=== PATIENT | female | born 1970 | race Caucasian/White ===

== ENCOUNTER → 2016-12-13 | Outpatient (CLI) | payer MEDICARE ==
[~2016-12-13] MED LIST: ADVAIR 2501 DISK W/D PO; ALBUTEROL17 GM INH; AMITRIPTYLINE H25 MG PO; AMITRYPTYLINE PO; BENTYL20 MG PO; CARTIA XT; DICLOFENAC PO; FLEXERIL10 MG PO; LORTAB 101 TAB 10/5 PO; LORTAB 5/500 TA1 TA2 PO; LORTAB 7.5-5001 TAB PO; LORTAB 7.51 TAB PO; MEDROL PO; MEDROL4 MG/DOSE- PO; METOPROLOL SUCC25 MG PO; NAPROSYN250 M1 PO; NAPROSYN500 MG PO; NEURONTIN600 MG PO; NEURONTIN800 MG PO; OMEPRAZOLE40 M1 PO; PERCOCET 5-3251 TAB PO; PRINIVIL20 M1 PO; ZITHROMAX PO; ZOFRAN ODT4 MG/UDTAB SL
--- NOTE | ~2016-12-13 | CT2 ---
[facility] A Service of [facility] RADIOLOGY TEXT RESULTS PATIENT: ALFRED ASIF LOCATION: [facility] : 66 UNIT #: [id number] AGE: [address]: Jose Thompson MD SEX: F ORDER DR: [id number] [address] [address] [id number] O MR#: [id number] Acc #: [id number] NAME: ALFRED ASIF : 1970 SEX: F STUDY DATE/TIME: 12/13/2016 12:48 UNIT: SCT ROOM: STUDY DESCRIPTION: CT Abd and Pelv W Cont Attending Physician: Jose Thompson M.D. Referring Physician: Jose Thompson M.D. Ordering Physician: Jose Thompson M.D. Primary Care Physician: Jimmy Nguyễn A.P.R.N. MEDICAL IMAGING REPORT This report is preliminary unless electronic signature is present. EXAM Abdomen and pelvis CT with contrast. DATE OF EXAM 12/13/2016 HISTORY Burning sensation in the right lower quadrant with tenderness to palpation for the past 2-3 months. TECHNIQUE Axial images were obtained with oral and intravenous contrast. 100 mL of Isovue was used. NOTE: This CT exam was performed with one or more of the following radiation dose reduction techniques: automatic exposure control, adjustment of mA and/or kV according to patient size, and iterative reconstruction. COMPARISON STUDIES Comparison with a noncontrasted examination from 10/07/2016. FINDINGS Clips are seen from cholecystectomy. There is a small hepatic cyst. The spleen and pancreas are unremarkable. There is a nonobstructing right kidney stone measuring about 2-3 mm in diameter. It is unchanged. There is no evidence of retroperitoneal adenopathy or ascites. The appendix is normal. No distended bowel loops are seen. There is a small right ovarian cyst on the previous scan that has resolved. Hysterectomy changes are noted and post-fusion changes are seen across L5-S1. No acute inflammatory changes are seen and no new or enlarging masses are seen in the low abdomen or pelvis. IMPRESSION Interval resolution of a small ovarian cyst on the right since the [facility] A Service of [facility] RADIOLOGY TEXT RESULTS PATIENT: ALFRED ASIF LOCATION: [facility] : [birth year] UNIT #: [id number] AGE: [address]: Jose Thompson MD SEX: F ORDER DR: previous examination. Normal appendix. No acute or inflammatory changes are seen in the abdomen or pelvis. Again noted is a nonobstructing right kidney stone. Dictated by... Jose Farias M.D. THIS IS AN ELECTRONICALLY VERIFIED REPORT Jose Farias M.D. at 12/18/2016 5:01 AM ADELFO/deya TD: 12/13/2016 21:24 JOB #: [id number] MEDICAL IMAGING REPORT
[2016-12-13 11:26] LABS: POC - CREATININE 0.69 mg/dL (0.44-1.03); POC - GFR >60.0 mL/min (>60)
== END | disposition home or self-care (01) ==
LOC: SCT 10:51
PROVIDERS: Surgery
DX: R10.31 Right lower quadrant pain (principal); N20.0 Calculus of kidney
CPT/HCPCS: 74177; 82565; Q9967

== ENCOUNTER → 2017-02-17 | Outpatient (CLI) | payer MEDICARE ==
--- NOTE | ~2017-02-17 | US128 ---
[id number] [facility] [place]. [facility] [address] [place], [place] [address] [id number] O MR#: [id number] Acc #: [id number] NAME: ALFRED ASIF : 1970 SEX: F STUDY DATE/TIME: 02/17/2017 13:19 UNIT: CGUS ROOM: STUDY DESCRIPTION: Thyroid Attending Physician: Trent Berg M.D. Referring Physician: Trent Berg M.D. Ordering Physician: Trent Berg M.D. Primary Care Physician: Javier JacksonPDarleenRRico MEDICAL IMAGING REPORT This report is preliminary unless electronic signature is present EXAM Thyroid ultrasound, 02/17/17 HISTORY Followup thyroid nodules. COMPARISON: Prior ultrasound dated 08/07/16 FINDINGS On the right, there is a small upper pole solid nodule measuring 10 x 6 x 9 mm, not substantially changed since the prior exam and a medial mid to lower pole nodule measuring 8 x 6 x 7 mm also not substantially changed. On the left, there is a solid nodule near the lower pole of the gland though possibly extrathyroidal measuring at least 11 x 11 x 17 mm. On prior exam this may have only been partially visualized and was measured at about 11 x 12 x 15 mm. It is probably unchanged. Probably also unchanged since neck CT of 12/03/[address] angiogram of 01/09/16. IMPRESSION No interval change since recent prior ultrasound of 08/07/16, no new or growing nodule. Dominant lesion of the left lower pole likely an exophytic thyroid nodule also appears unchanged on CT examinations dating back to November 2013. Dictated by... Mars Patten M.D. THIS IS AN ELECTRONICALLY VERIFIED REPORT Mars Patten M.D. at 02/20/2017 3:57 PM EJ/noé TD: 02/18/2017 11:37 JOB #: [id number] MEDICAL IMAGING REPORT Page 1 of 1 COPY
== END | disposition home or self-care (01) ==
LOC: CGUS 12:56
DX: E04.2 Nontoxic multinodular goiter (principal); E07.89 Other specified disorders of thyroid
CPT/HCPCS: 76536

== ENCOUNTER 2017-04-24 02:41 | Emergency (ER) | payer MEDICARE | END 2017-04-24 04:28 | disposition home or self-care (01) | LOC: SED 02:41 | DX: F41.9 Anxiety disorder, unspecified (principal); J45.909 Unspecified asthma, uncomplicated | CPT/HCPCS: 36415; 70450; 80048; 85025; 96374; 96375; 99283; 99284; J0780; J1200; J3360 ==